=== PATIENT | female | born 1945 | race African-American/Black ===

== ENCOUNTER → 2018-10-20 | Outpatient (CLI) | payer OTHER | LOC: RAD 01:22 | DX: Z12.31 Encounter for screening mammogram for malignant neoplasm of breast (principal) ==

== ENCOUNTER → 2019-04-21 | Outpatient (CLI) | payer OTHER | LOC: RAD 15:10 | DX: M47.26 Other spondylosis with radiculopathy, lumbar region (principal); M43.16 Spondylolisthesis, lumbar region ==

== ENCOUNTER → 2019-10-21 | Outpatient (CLI) | payer OTHER | LOC: RAD 09:57 | DX: Z12.31 Encounter for screening mammogram for malignant neoplasm of breast (principal) ==

== ENCOUNTER → 2019-10-26 | Outpatient (CLI) | payer OTHER | LOC: ULTRA 08:41 | DX: Z01.419 Encounter for gynecological examination (general) (routine) without abnormal findings (principal); N63.11 Unspecified lump in the right breast, upper outer quadrant; N60.01 Solitary cyst of right breast ==

== ENCOUNTER → 2020-09-27 | Outpatient (CLI) | payer OTHER | LOC: BC 08:31 | PROVIDERS: ATTEND Family Medicine | DX: Z12.31 Encounter for screening mammogram for malignant neoplasm of breast (principal) ==

== ENCOUNTER → 2020-11-29 | Outpatient (CLI) | payer OTHER | LOC: CAT 08:46 | PROVIDERS: ATTEND Family Medicine | DX: Z13.6 Encounter for screening for cardiovascular disorders (principal); I25.10 Atherosclerotic heart disease of native coronary artery without angina pectoris; E78.00 Pure hypercholesterolemia, unspecified ==

== ENCOUNTER → 2021-09-09 | Outpatient (CLI) | payer OTHER | LOC: BC 14:39 | PROVIDERS: ATTEND Family Medicine | DX: Z12.31 Encounter for screening mammogram for malignant neoplasm of breast (principal) ==